=== PATIENT | male | born 1965 | race Caucasian/White ===

== ENCOUNTER 2023-10-29 11:04 | Emergency (ER) | payer MEDICAID ==
[~2023-10-29] VITALS: Ht 170.2 cm; Wt 104.3 kg
[2023-10-29 11:36] VITALS: BP 148/92; PULSE 74; RESP 22; TEMP 97.9; O2SAT 98
[2023-10-29] MEDS ORDERED: DICL20GE TP (12:27)
[2023-10-29] MEDS ORDERED: PRED20TA5 PO (12:27)
[2023-10-29] MEDS ORDERED: CYCL-711 PO (12:27)
[2023-10-29] MEDS: KETOROLAC 30 MG/ML VIAL IM ONE (13:05)
[2023-10-29] MEDS: predniSONE 20 MG TAB PO ONE (13:07)
[2023-10-29 13:12] VITALS: BP 148/92; PULSE 74; RESP 22; TEMP 97.9; O2SAT 98
== END 2023-10-29 13:15 | disposition home or self-care (01) ==
LOC: MED 11:04
DX: G57.02 Lesion of sciatic nerve, left lower limb (principal); I10 Essential (primary) hypertension; Z79.899 Other long term (current) drug therapy
CPT/HCPCS: 96372; 99283; J1885; J7512

== ENCOUNTER 2023-11-11 10:42 | Emergency (ER) | payer MEDICAID ==
[~2023-11-11] VITALS: Ht 172.7 cm; Wt 103.0 kg
[~2023-11-11 10:42] MED LIST: CYCL-711 PO; DICL20GE TP; PRED20TA5 PO
[2023-11-11 10:43] VITALS: BP 124/73; PULSE 80; RESP 22; TEMP 97.9; O2SAT 98
[2023-11-11] MEDS: KETOROLAC 30 MG/ML VIAL IM ONE (11:30)
[2023-11-11] MEDS ORDERED: LIDO4CRE18 TP (13:44)
[2023-11-11 14:29] VITALS: BP 122/72; PULSE 88; RESP 16; TEMP 97.9; O2SAT 98
== END 2023-11-11 14:29 | disposition home or self-care (01) ==
LOC: MED 10:42
DX: M47.816 Spondylosis without myelopathy or radiculopathy, lumbar region (principal); M25.562 Pain in left knee; I10 Essential (primary) hypertension; Z79.899 Other long term (current) drug therapy
CPT/HCPCS: 72110; 73562; 96372; 99284; J1885